=== PATIENT | male | born 1990 | race Caucasian/White ===

== ENCOUNTER 2019-05-02 13:57 | Emergency (ER) | payer OTHER ==
[~2019-05-02] VITALS: Ht 193 cm; Wt 111.1 kg
[2019-05-02 14:26] VITALS: Ht 193 cm; Wt 111.1 kg
[2019-05-02 16:08] LABS: BASOPHIL % 0.1 % (0-2); PLATELET COUNT 252 x10^3mcL (130-400); RED CELL DISTRIBUTION WIDTH 13.1 % (11.5-14.5)
[2019-05-02 16:12] LABS: CALCIUM 8.5 mg/dL (8.5-10.1); CHLORIDE SERUM 106 mmol/L (98-107); CREATININE SERUM 0.8 mg/dL (0.7-1.3); GFR1 > 60 mL/min; GLUCOSE SERUM 91 mg/dL (74-106); POTASSIUM SERUM 3.9 mmol/L (3.5-5.1); SODIUM SERUM 141 mmol/L (136-145)
[2019-05-02 16:17] LABS: ALKALINE PHOSPHATASE 64 U/L (46-116); ALT/SGPT 38 U/L (16-63); AST/SGOT 25 U/L (15-37); BILIRUBIN TOTAL 0.3 mg/dL (0.20-1.00)
[2019-05-02 17:52] VITALS: BP 130/85
== END 2019-05-02 17:52 | disposition home or self-care (01) ==
LOC: ED 13:57
PROVIDERS: Emergency Medicine
DX: G40.909 Epilepsy, unspecified, not intractable, without status epilepticus (principal); I10 Essential (primary) hypertension
CPT/HCPCS: J2060